=== PATIENT | male | born 1955 | race Asian ===

== ENCOUNTER 2019-08-07 06:31 | Day surgery (SDC) | payer OTHER ==
[~2019-08-07] VITALS: Ht 170.2 cm; Wt 93.6 kg
[~2019-08-07 06:31] MED LIST: ALBU8HFA IH; BECL10.62 IH; CHOL20004 PO; DICL50TA9 PO; FLUT16H NASAL; LORA10TA7 PO; LOSA-88 PO; LOSA1TAB37 PO; MONT10TA26 PO; SIMV10TA97 PO; SODIUM CHLORIDE 0.9% 1,000 ML ONE
[2019-08-07] MEDS ORDERED: LIDOCAINE 2% 30 ML JELLY TP ONE (06:32)
[2019-08-07] MEDS ORDERED: BENZOCAINE 20% 50 MCG/SPRAY 57 GM TP ONE (06:32)
[2019-08-07] MEDS ORDERED: LIDOCAINE 4% 50 ML SOLUTION TP ONE (06:32)
[2019-08-07] MEDS ORDERED: ALBUTEROL SULFATE 2.5 MG/0.5 ML NEB SOLUTION NEB ONE (06:32)
[2019-08-07] MEDS ORDERED: SODIUM CHLORIDE 0.9% 1,000 ML IV ONE (07:00)
[2019-08-07] MEDS ORDERED: SIMV-260 PO (07:27)
[2019-08-07] MEDS ORDERED: OMEP20 PO (07:27)
[2019-08-07] MEDS ORDERED: MIDAZOLAM HCL 2 MG/2 ML VIAL ONE (07:58)
[2019-08-07] MEDS ORDERED: FentaNYL CITRATE-PF 100 MCG/2 ML VIAL ONE (07:58)
[2019-08-07] MEDS ORDERED: MethylPREDNISolone SOD SUCC 125 MG/2 ML VIAL IVP ONE (08:30)
[2019-08-07] MEDS ORDERED: MethylPREDNISolone SOD SUCC 125 MG/2 ML VIAL ONE (09:06)
[2019-08-07] MEDS ORDERED: OXYGEN THERAPY IH SCH (20:00)
== END 2019-08-07 10:15 | disposition home or self-care (01) ==
LOC: SURGERY 06:31
PROVIDERS: ATTEND Internal Medicine Critical Care Medicine
DX: R05 Cough (principal); J98.8 Other specified respiratory disorders; J34.89 Other specified disorders of nose and nasal sinuses; J38.4 Edema of larynx; B37.0 Candidal stomatitis; I10 Essential (primary) hypertension; E78.00 Pure hypercholesterolemia, unspecified; Z87.891 Personal history of nicotine dependence; Z79.899 Other long term (current) drug therapy
CPT/HCPCS: 31623; 31624; 71045; 87070; 87101; 87206; 87220; J2250; J2930; J3010; J7030; 87015; 87205; 88108; 88312

== ENCOUNTER 2022-05-13 06:12 | Day surgery (SDC) | payer OTHER ==
[~2022-05-13] VITALS: Ht 170.2 cm; Wt 90.9 kg
[~2022-05-13 06:12] MED LIST changes: -CHOL20004 PO; +CHOL200074 PO; -DICL50TA9 PO; -FLUT16H NASAL; +FLUT16SP NASAL; -LORA10TA7 PO; -LOSA-88 PO; +MONT-40 PO; -MONT10TA26 PO; +OMEP20 PO; +SIMV-260 PO; -SIMV10TA97 PO; -SODIUM CHLORIDE 0.9% 1,000 ML ONE
[2022-05-13] MEDS ORDERED: ALBUTEROL SULFATE 2.5 MG/0.5 ML NEB SOLUTION NEB ONE (06:13)
[2022-05-13] MEDS ORDERED: LIDOCAINE 2% 11 ML JELLY TP ONE (06:13)
[2022-05-13] MEDS ORDERED: BENZOCAINE 20% 50 MCG/SPRAY 57 GM TP ONE (06:13)
[2022-05-13] MEDS ORDERED: LIDOCAINE 4% 50 ML SOLUTION TP ONE (06:13)
[2022-05-13] MEDS ORDERED: SODIUM CHLORIDE 0.9% 1,000 ML IV ONE (06:30)
[2022-05-13] MEDS ORDERED: SODIUM CHLORIDE 0.9% 1,000 ML ONE (06:33)
[2022-05-13 07:26] LABS: COVID AG,FIA SOURCE NASAL SWAB
[2022-05-13] MEDS ORDERED: FAMO20 PO (07:34)
[2022-05-13] MEDS ORDERED: OS500 PO (07:34)
[2022-05-13] MEDS ORDERED: MIDAZOLAM HCL 2 MG/2 ML VIAL ONE (08:14)
[2022-05-13] MEDS ORDERED: FentaNYL CITRATE PF 100 MCG/2 ML VIAL ONE (08:15)
[2022-05-13] MEDS ORDERED: MethylPREDNISolone SOD SUCC 125 MG/2 ML VIAL IVP ONE (09:15)
[2022-05-13] MEDS ORDERED: MethylPREDNISolone SOD SUCC 125 MG/2 ML VIAL ONE (09:19)
[2022-05-13] MEDS ORDERED: OXYGEN THERAPY IH SCH (20:00)
== END 2022-05-13 10:40 | disposition home or self-care (01) ==
LOC: SURGERY 06:12
PROVIDERS: ATTEND Internal Medicine Critical Care Medicine
DX: J38.4 Edema of larynx (principal); B37.0 Candidal stomatitis; Z86.19 Personal history of other infectious and parasitic diseases; Z72.89 Other problems related to lifestyle; Z98.49 Cataract extraction status, unspecified eye; I10 Essential (primary) hypertension
CPT/HCPCS: 31623; 87206; 87101; 87220; 87070; 87186; 31624; 94640; 71045; 87015; 87426; J3010; J2250; J2930; Q9967; J7030; C9803; J7613; Z7610

== ENCOUNTER 2025-05-26 07:04 | Day surgery (SDC) | payer OTHER ==
[~2025-05-26] VITALS: Ht 170.2 cm; Wt 90.5 kg
[~2025-05-26 07:04] MED LIST changes: -ALBU8HFA IH; -BECL10.62 IH; +FAMO20 PO; -FLUT16SP NASAL; -MONT-40 PO; -OMEP20 PO; +OS500 PO
[2025-05-26] MEDS ORDERED: FentaNYL CITRATE PF 100 MCG/2 ML VIAL ONE (07:37)
[2025-05-26] MEDS ORDERED: MIDAZOLAM HCL 2 MG/2 ML VIAL ONE (07:37)
[2025-05-26 09:40] VITALS: PULSE 57; RESP 16; O2SAT 100
[2025-05-26] MEDS ORDERED: VITA1CAP17 PO (09:46)
[2025-05-26] MEDS ORDERED: LOSA-30 PO (09:46)
[2025-05-26] MEDS ORDERED: SIMV-259 PO (09:46)
[2025-05-26] MEDS ORDERED: ZINC50TA80 PO (09:46)
[2025-05-26] MEDS ORDERED: APIX5TAB PO (09:46)
[2025-05-26] MEDS ORDERED: AMLO-258 PO (09:46)
[2025-05-26] MEDS ORDERED: CARV3 PO (09:46)
[2025-05-26] MEDS: SODIUM CHLORIDE 0.9% 1,000 ML IV ONE (10:32)
[2025-05-26] MEDS ORDERED: LIDOCAINE 4% 50 ML SOLUTION ONE (12:00)
[2025-05-26] MEDS ORDERED: ALBUTEROL SULFATE 2.5 MG/0.5 ML NEB SOLUTION NEB ONE (12:00)
[2025-05-26] MEDS ORDERED: LIDOCAINE 2% 11 ML JELLY ONE (12:00)
[2025-05-26] MEDS ORDERED: BENZOCAINE 20% 50 MCG/SPRAY 57 GM ONE (12:00)
== END 2025-05-26 12:30 | disposition home or self-care (01) ==
LOC: SURGERY 07:04
PROVIDERS: ATTEND Internal Medicine Critical Care Medicine
DX: J38.4 Edema of larynx (principal); B37.0 Candidal stomatitis; R05.3 Chronic cough; R06.2 Wheezing; R04.2 Hemoptysis; E78.00 Pure hypercholesterolemia, unspecified; Z98.890 Other specified postprocedural states; Z98.49 Cataract extraction status, unspecified eye
CPT/HCPCS: 31623; 87206; 87101; 87220; 87070; 31624; 71045; 87015; J3010; J2250; J2919; 88108; J7613; Z7610